=== PATIENT | male | born 1960 | race Caucasian/White ===

== ENCOUNTER 2017-11-01 13:33 | Inpatient (IN) | payer OTHER, MEDICARE ==
[2017-11-01 14:12] LABS: #Eosinphils 0.1 thou/uL (0.0-0.7); #Lymphocytes 1.1 thou/uL (1.20-3.40); #Monocytes 0.5 thou/uL (0.11-0.59); #Neutrophils 6.8 thou/uL (1.40-6.50); %Basophils 0.3 % (0.0-1.0); %Eosinophils 1.5 % (0.0-10.0); %Lymphocytes 12.4 % (21.0-51.0); %Monocytes 6.3 % (0.0-10.0); %Neutrophils 79.5 % (42.0-75.0); Hemoglobin 13.5 g/dL (14.0-18.0); Mean Corpuscular HGB CONC 30.2 g/dL (32.0-36.0); Mean Corpuscular Hemoglobin 28.5 pg (27.0-31.0); Mean Corpuscular Volume 94.1 fl (80.0-94.0); Platelet Count 210 thou/uL (130-400); RBC Distribution Width 15.4 % (11.5-14.5); Red Blood Cell (RBC) Count 4.73 mill/uL (4.70-6.10); White Blood Cell (WBC) Count 8.5 thou/uL (4.8-10.8)
[2017-11-01 14:40] LABS: ALT (SGPT) 12 U/L (8-55); AST (SGOT) 18 U/L (5-34); Albumin 4.2 g/dL (3.5-5.0); Alkaline Phosphatase 70 U/L (40-150); Anion Gap 17 mmol/L (10-20); BUN (Urea Nitrogen) 42 mg/dL (8.4-25.7); Bilirubin, Total 0.8 mg/dL (0.2-1.2); Calc. Creatinine Clearance 0 mL/min (70-130); Calcium 9.5 mg/dL (7.8-10.44); Carbon Dioxide 26 mmol/L (22-29); Chloride 97 mmol/L (98-107); Estimated GFR-MDRD 39; Globulin 3.6 g/dL (2.4-3.5); Glucose 258 mg/dL (70-105); Potassium 5.2 mmol/L (3.5-5.1); Protein, Total 7.8 g/dL (6.0-8.3); Sodium 135 mmol/L (136-145)
[2017-11-01 14:51] LABS: CKMB 1.9 ng/mL (0-6.6); Troponin I Less than 0.010 ng/mL (< 0.028)
--- NOTE | 2017-11-01 15:08 | RAD ---
PORTABLE AP CHEST RADIOGRAPH: Date: 11-01-17 History: Dyspnea, getting worse over the last month. Comparison: 05-03-13 FINDINGS: Cardiac silhouette is enlarged. Pulmonary vasculature is at the upper limits of normal with mild incr ease in perihilar interstitial densities, particularly on the right. There is a questionable nodular density overlying the right midlung zone, but this does overlie the anterior right third rib. Metalli c foreign body again overlies the medial aspect right lung apex. No pleural effusion or pneumothorax is seen. No other interval change. IMPRESSION: 1. Cardiomegaly with mild prominence of the pulmonary vasculature. Correlation for mild CHF is sugges дмитрий. 2. Question nodular density overlying the right mid lung zone. This does overlie the anterior right t hird rib and could be artifactual. Nevertheless, follow up PA and lateral chest radiograph is recomme nded. Code T POS: RAMIRO
[2017-11-01] MEDS ORDERED: Furosemide 40 MG/4 ML VIAL ONE (15:27)
[2017-11-01] MEDS ORDERED: Dextrose 5% in Water 1,000 ML IV PRN (16:17)
[2017-11-01] MEDS ORDERED: HumaLOG 300 UNITS/3 ML VIAL SC PRN (16:17)
[2017-11-01] MEDS ORDERED: Dextrose 50% Abboject 50 ML SYRINGE SLOW IVP PRN (16:17)
[2017-11-01] MEDS ORDERED: Albuterol Sulfate 2.5 mg/3 ml Neb NEB PRN (16:50)
[2017-11-01] MEDS ORDERED: Acetaminophen 325 MG TAB PO PRN (16:56)
[2017-11-01] MEDS ORDERED: Milk Of Magnesia 30 ML UDCUP PO PRN (16:56)
--- NOTE | 2017-11-01 19:35 | HP ---
PRIMARY CARE PHYSICIAN: Faizan Nugent M.D. PRESENTING COMPLAINT: "Swelling in my legs and shortness of breath." HISTORY OF PRESENT ILLNESS: Mr. Salas Najera is a 57-year-old male with a past medical history of type 2 diabetes mellitus, hypertension, and obesity, who presents to the emergency room with complaints of progressively worsening lower extremity edema for the past months, associated with dyspnea on exertion. He denies chest pain, PND, orthopnea, palpitations. He has no nausea, vomiting, cough, chest pain, or sputum production. There are no abdominal or urinary symptoms. He was seen by his engine manager and started on 20 mg of IV Lasix but due to continued worsening edema, this was increased to 60 mg on Tuesday. As he was not seeing any improvement, he came to the emergency room, where he was found to be saturating at 83% on room air. His troponin was negative. BNP was 199. BUN and creatinine elevated at 42 and 1.8. Potassium 5.2. Chest x-ray showed vascular congestion. EKG showed no signs of acute ischemia. He was given one dose of 40 mg furosemide and admitted for possible new onset CHF. He reports he had an echo done about 4 years ago which was normal and a cardiac catheterization about 5 years ago which also was normal. PAST MEDICAL HISTORY: Diabetes mellitus, hypertension, hyperlipidemia. PAST SURGICAL HISTORY: Appendectomy, carpal tunnel syndrome correction, right ulna surgery, cholecystectomy, and 12/multiple back surgeries. FAMILY HISTORY: Reviewed and noncontributory. SOCIAL HISTORY: Former smoker, smoked last over a decade ago. Does not drink alcohol or use illicit drugs. ALLERGIES: MSG and PENICILLIN. HOME MEDICATIONS: Atenolol 100 mg b.i.d., glyburide 5 mg b.i.d., morphine sulfate extended release 1-2 tablets p.r.n., nifedipine 30 mg daily, Proventil HFA inhaler. REVIEW OF SYSTEMS: Twelve-point review of systems conducted and negative except as stated in HPI. PHYSICAL EXAMINATION: VITAL SIGNS: Within normal limits, saturating well on nasal cannula oxygen. GENERAL: Not in acute distress, sitting comfortably in bed. HEENT: Normocephalic, atraumatic. Not pale, anicteric. PERRLA. EOMI. NECK: Supple, full range of movement. No JVD. RESPIRATORY: Vesicular breath sounds bilaterally with bibasilar crackles, mild. No wheezes or rales. CARDIOVASCULAR: S1, S2 only with no gallop rhythm. Regular rate and rhythm. Bilateral pedal edema 2-3+. MUSCULOSKELETAL: Moves all extremities spontaneously. SKIN: Warm, dry, well perfused. NEUROLOGIC: Alert and well oriented. No focal deficits. PSYCHIATRIC: Normal mood and affect. LABORATORY DATA: As stated in HPI. IMAGING: An EKG as stated in HPI. ASSESSMENT AND PLAN: 1. Acute hypoxic respiratory failure: likely due to new onset congestive heart failure. He has been given one dose of IV furosemide. We will obtain an echocardiogram, trend troponin, consult Cardiology, monitor inputs and outputs, and weigh daily. We will also continue on IV furosemide 40 mg b.i.d. The patient reports gaining up to 40 pounds in the last month. We will obtain TSH as well. 2. Type 2 diabetes mellitus: He is uncontrolled. We will place on sliding scale insulin, diabetic diet, fingerstick glucose before meals and at bedtime and hypoglycemia protocol. 3. Hypertension. Blood pressure is currently at goal. We will resume home medication, but his beta jyoti will need to be switched to one that improves mortality like carvedilol or Toprol-XL before discharge. He might also need to be started on an MIGUELITO inhibitor and spironolactone depending on echocardiogram result. 4. Hyperlipidemia. We will continue home medication. 5. Code status: FULL CODE. 6. Deep venous thrombosis prophylaxis, subcutaneous heparin. 7. Acute kidney injury on chronic kidney disease: Creatinine has ranged between 1.33 and 1.8 in the past year. His current acute kidney injury is likely due to cardiorenal syndrome. We will continue IV furosemide and monitor renal function closely. We will also avoid nephrotoxins and renally dose all his medications. [facility]
[2017-11-01] MEDS ORDERED: Furosemide 40 MG/4 ML VIAL SLOW IVP SCH (20:00)
[2017-11-01 20:13] LABS: Troponin I Less than 0.010 ng/mL (< 0.028)
[2017-11-01] MEDS: Heparin 5,000 UNITS/ML VIAL SC SCH ×2 (21:03)
[2017-11-01] MEDS: Docusate 100 MG CAP PO SCH (21:04)
[2017-11-02] MEDS ORDERED: oxyCODONE/Acetaminophen 5 mg/325 mg Tablet PO SCH ×2 (00:30→09:00)
[2017-11-02] MEDS: Gabapentin 400 MG CAP PO SCH ×4 (00:46→20:25)
[2017-11-02 02:08] LABS: #Eosinphils 0.2 thou/uL (0.0-0.7); #Lymphocytes 1.4 thou/uL (1.20-3.40); #Monocytes 0.6 thou/uL (0.11-0.59); #Neutrophils 3.9 thou/uL (1.40-6.50); %Basophils 0.7 % (0.0-1.0); %Eosinophils 2.9 % (0.0-10.0); %Lymphocytes 23.5 % (21.0-51.0); %Monocytes 9.1 % (0.0-10.0); %Neutrophils 63.8 % (42.0-75.0); Hemoglobin 12.4 g/dL (14.0-18.0); Mean Corpuscular HGB CONC 30.6 g/dL (32.0-36.0); Mean Corpuscular Hemoglobin 28.5 pg (27.0-31.0); Mean Corpuscular Volume 93.1 fl (80.0-94.0); Mean Platelet Volume 8.2 fL (7.4-10.4); Platelet Count 198 thou/uL (130-400); RBC Distribution Width 15.6 % (11.5-14.5); Red Blood Cell (RBC) Count 4.36 mill/uL (4.70-6.10); White Blood Cell (WBC) Count 6.1 thou/uL (4.8-10.8)
[2017-11-02 02:32] LABS: Troponin I 0.011 ng/mL (< 0.028)
[2017-11-02 02:37] LABS: Anion Gap 11 mmol/L (10-20); BUN (Urea Nitrogen) 40 mg/dL (8.4-25.7); Calc. Creatinine Clearance 131 mL/min (70-130); Calcium 9.5 mg/dL (7.8-10.44); Carbon Dioxide 31 mmol/L (22-29); Chloride 98 mmol/L (98-107); Estimated GFR-MDRD 51; Glucose 101 mg/dL (70-105); Potassium 4.1 mmol/L (3.5-5.1); Sodium 136 mmol/L (136-145)
[2017-11-02] MEDS: Furosemide 20 MG/2 ML VIAL SLOW IVP SCH ×2 (06:08→15:01)
[2017-11-02] MEDS ORDERED: Morphine ER 30 MG TAB PO SCH (09:00)
[2017-11-02] MEDS: Heparin 5,000 UNITS/ML VIAL SC SCH ×6 (09:19→20:26)
[2017-11-02] MEDS: Multivitamin W/ Minerals 1 TAB PO SCH (09:20)
[2017-11-02] MEDS: Docusate 100 MG CAP PO SCH ×2 (09:21→20:23)
[2017-11-02] MEDS: oxyCODONE/Acetaminophen 5 mg/325 mg Tablet PO SCH ×2 (09:49→20:25)
--- NOTE | 2017-11-02 14:58 | PDOC.PN ---
- Subjective Encounter Start Date: 11/02/17 Encounter Start Time: 15:02 Subjective: No complaints. Reports feeling much better. -: No acute events overnight. - Objective Resuscitation Status: Resuscitation Status FULL:Full Resuscitation MAR Reviewed: Yes Vital Signs & Weight: Vital Signs (12 hours) Temp Pulse Resp BP BP Pulse Ox 11/02/17 11:49 98.1 F 75 18 160/71 H 92 L 11/02/17 07:40 98.4 F 70 16 139/61 92 L 11/02/17 04:00 97.9 F 68 16 136/62 93 L Weight Weight 357 lb 9.6 oz I&O: 11/01/17 11/02/17 11/03/17 06:59 06:59 06:59 Intake Total 360 Output Total 3405 Balance -3045 Result Diagrams: 11/02/17 01:53 11/02/17 01:53 Additional Labs: Accuchecks 11/02/17 11/02/17 11/01/17 11:16 05:49 20:38 POC Glucose 175 H 94 173 H Phys Exam - Physical Examination Constitutional: NAD HEENT: PERRLA, moist MMs, sclera anicteric, oral pharynx no lesions Neck: no JVD, supple, full ROM Respiratory: no wheezing, no rales, no rhonchi, clear to auscultation bilateral minimal bibasilar crackles. Cardiovascular: RRR, no significant murmur, no rub Gastrointestinal: soft, non-tender, no distention, positive bowel sounds Musculoskeletal: pulses present, edema present Neurological: non-focal, moves all 4 limbs Psychiatric: normal affect, A&O x 3 Skin: normal turgor Deviation from normal: b/l chronic venous stasis b/l lower extremities Dx/Plan (1) Acute respiratory failure with hypoxia Code(s): J96.01 - ACUTE RESPIRATORY FAILURE WITH HYPOXIA Status: Acute Comment: Likely 2/2/ volume overload. ? new onset CHF. (2) HTN (hypertension) Code(s): I10 - ESSENTIAL (PRIMARY) HYPERTENSION Status: Chronic Qualifiers: Hypertension type: essential hypertension Qualified Code(s): I10 - Essential (primary) hypertension Comment: Achieving better control. We will gradually reintroduce home regimen. (3) DM2 (diabetes mellitus, type 2) Status: Chronic Qualifiers: Diabetes mellitus local company intermodal truck driver insulin use: with local company intermodal truck driver use Diabetes mellitus complication status: with kidney complications Diabetes mellitus complication detail: with chronic kidney disease Chronic kidney disease stage : stage 3 (moderate) Qualified Code(s): E11.22 - Type 2 diabetes mellitus with diabetic chronic kidney disease; N18.3 - Chronic kidney disease, stage 3 ( moderate); N18.3 - Chronic kidney disease, stage 3 (moderate); Z79.4 - local company intermodal truck driver (current) use of insulin; Z79.4 - prison (current) use of insulin; Z79.4 - prison (current) use of insulin; Z79.4 - local company intermodal truck driver (current) use of insulin Comment: Controlled and at goal. (4) HLD (hyperlipidemia) Code(s): E78.5 - HYPERLIPIDEMIA, UNSPECIFIED Status: Chronic (5) Acute on chronic renal failure Code(s): N17.9 - ACUTE KIDNEY FAILURE, UNSPECIFIED; N18.9 - CHRONIC KIDNEY DISEASE, UNSPECIFIED Status: Acute Qualifiers: Acute renal failure type: unspecified Chronic kidney disease stage: stage 3 (moderate) Qualified Code(s): N17.9 - Acute kidney failure, unspecified; N18.3 - Chronic kidney disease, stage 3 (moderate); N18.3 - Chronic kidney disease, stage 3 (moderate) Comment: Improving - Plan cont current plan of care, plan discussed w/ family, out of bed/ambulate, DVT proph w/heparin Continue IV diuresis -: f/u TTE report -: f/u Cardiology recs. -: Fasting lipid profile. * . Review of Systems - Medications/Allergies Allergies/Adverse Reactions: Allergies Allergy/AdvReac Type Severity Reaction Status Date / Time Penicillins Allergy Verified 05/01/13 09:08 Medications: Current Medications Acetaminophen (Tylenol) 650 mg PO Q4H PRN PRN Reason: Headache/Fever or Pain Albuterol Sulfate (Ventolin) 2.5 mg NEB [id number] PRN PRN Reason: Wheezing Aspirin (Aspirin Chewable) 81 mg PO DAILY [facility] Last Admin: 11/02/17 09:15 Dose: Not Given Aspirin (Aspirin Chewable) 81 mg PO DAILY [facility] Last Admin: 11/02/17 09:20 Dose: 81 mg Dextrose/Water (Dextrose 50%) 25 gm SLOW IVP PRN PRN PRN Reason: Hypoglycemia Docusate Sodium (Colace) 100 mg PO BID [facility] Last Admin: 11/02/17 09:21 Dose: Not Given Furosemide (Lasix) 20 mg SLOW IVP 0600,1400 [facility] Last Admin: 11/02/17 06:08 Dose: 20 mg Gabapentin (Neurontin) 800 mg PO Q8HR [facility] Glipizide (Glucotrol Xl) 10 mg PO BID [facility] Last Admin: 11/02/17 09:20 Dose: 10 mg Glucagon (Glucagon) 1 mg IM PRN PRN PRN Reason: Hypoglycemia Heparin Sodium (Porcine) (Heparin) 5,000 units SC TID [facility] Last Admin: 11/02/17 09:19 Dose: 5,000 units Dextrose/Water (D5w) 1,000 mls @ 0 mls/hr IV .Q0M PRN; As Directed PRN Reason: Hypoglycemia Insulin Human Lispro (Humalog) 0 units SC .MILD SLIDING SCALE PRN PRN Reason: Mild Correctional Scale Iron/Minerals/Multivitamins (Theragran M) 1 tab PO DAILY [facility] Last Admin: 11/02/17 09:20 Dose: 1 tab Lactulose (Lactulose) 20 gm PO DAILYPRN PRN PRN Reason: Constipation Magnesium Hydroxide (Milk Of Magnesium) 30 ml PO DAILYPRN PRN PRN Reason: Constipation Morphine Sulfate (Ms Contin) 60 mg PO Q12HR [facility] Last Admin: 11/02/17 09:50 Dose: 60 mg Morphine Sulfate (Ms Contin) 30 mg PO DAILY [facility] Oxycodone/Acetaminophen (Percocet 5/325) 1 tab PO BID [facility] Last Admin: 11/02/17 09:49 Dose: 1 tab
[2017-11-02] MEDS ORDERED: Nebivolol HCl 5 MG TAB PO SCH (18:45)
--- NOTE | 2017-11-03 00:09 | CON ---
DATE OF CONSULTATION: 11/02/2017 HISTORY OF PRESENT ILLNESS: Salas Najera is a 57-year-old white male, admitted with increased shortness of breath and peripheral edema. He has had cardiac evaluations in the past. In 10/2004, he continued to have persistent nausea after cholecystectomy and ultimately underwent cardiac catheterization, which revealed normal coronary arteries and normal left ventricular function. This was performed by Dr. Dominique. Then, he was evaluated by Dr. Griffiths in 2010 for rapid heartbeat. He was found to have supraventricular tachycardia and ultimately underwent ablation in 03/[address] Tracey. This apparently was performed in [place]. He follows with a mixing place supervisor in [place], but does not have any specific cardiac diagnosis and just sees him for preventative care. It is of note that in 04/2013, he was admitted and found to have pH of 7.26, pCO2 of 54, pO2 of 80 and felt at that time that he may have obesity hypoventilation syndrome. It was recommended that he undergo sleep study by Dr. Hernandez; however, this was not performed until 01/2017. He was found to have very severe obstructive sleep apnea. He does state that he snores at night at times states he quits breathing and he is hypersomnolent during the day. He still has not started using BiPAP and states that he just recently got the machine, but has never tried it. Over the last 1-2 weeks, he has had increasing peripheral edema. Dr. Nugent started him on Lasix 20 q.a.m. This did not make any difference and this was increased to 40 mg q.a.m., 20 mg q.p.m. He still has not had any resolution of his lower extremity edema and came to the emergency room for evaluation. He denies any chest discomfort. PAST MEDICAL HISTORY: Hypertension, hyperlipidemia, diabetes. OPERATIONS: Appendectomy, cholecystectomy, carpal tunnel release, right ulnar surgery, multiple back surgeries. MEDICATIONS: Morphine sulfate 30 q. 3 p.m., nifedipine 90 daily, furosemide 40 q.a.m. and 20 q.p.m., gabapentin 800 t.i.d., glipizide 10 mg b.i.d., insulin, morphine sulfate 60 mg q.12 hours, multivitamin daily, Bystolic 10 mg daily, oxycodone. ALLERGIES: PENICILLIN. Also sounds, if he had renal failure with trimethoprim and sulfamethoxazole. SOCIAL HISTORY: He stopped smoking over 10 years ago. He does not drink alcohol. FAMILY HISTORY: Unremarkable. REVIEW OF SYSTEMS: Twelve-point review of systems is unremarkable except as noted above. PHYSICAL EXAMINATION: VITAL SIGNS: Blood pressure 160/71, pulse of 75. HEENT: PERRL. NECK: Supple. LUNGS: Chest is clear. CARDIAC: S1, S2 normal without any S3, S4, or murmurs. ABDOMEN: Normal bowel sounds, without tenderness or organomegaly. EXTREMITIES: Revealed taut 2-3+ edema to the mid-thigh with chronic stasis changes of the lower extremities. NEUROLOGIC: Grossly intact. SKIN: Warm and dry. IMAGING AND LABORATORY DATA: EKG reveals normal sinus rhythm with left anterior fascicular block, poor R-wave progression. Cardiac enzymes were unremarkable. Hemoglobin 12.4, hematocrit 40.6, white count 6100, platelets 198 ,000. Sodium 136, potassium 4.1, chloride 98, carbon dioxide 31, BUN 40, creatinine 1.43. TSH is normal. Echocardiogram revealed the study to be technically difficult. Ejection fraction was 50% to 55% with mild left atrial enlargement, mild mitral regurgitation, mild tricuspid regurgitation, and mild pulmonic regurgitation. IMPRESSION: 1. Obesity hypoventilation syndrome. On blood gases 5 years ago, he had CO2 retention. 2. Untreated obstructive sleep apnea. The sleep study was 9 months ago and apparently he has just gotten a CPAP machine, but has not started using it. 3. Normal coronary arteries on catheterization in 2004. 4. History of supraventricular tachycardia ablation in 03/2011. 5. Hypertension. 6. Hypercholesterolemia. 7. Diabetes. 8. Former smoker. 9. Morbid obesity. 10. Chronic kidney disease. RECOMMENDATIONS: Arterial blood gases will be performed and I feel that he definitely has obesity hypoventilation syndrome. He needs pulmonary evaluation. It is of note that when he presented to the emergency room, his room air O2 sat was 83%. He should be started on his BiPAP. He will continue to be diuresed with low-dose intravenous Lasix. I will discontinue the Procardia, which is contributing also to his peripheral edema. I would control his blood pressure with Bystolic and he may need Apresoline as well. With his renal insufficiency, for now, would avoid MIGUELITO or ARBs. MTDD
[2017-11-03 05:13] LABS: #Eosinphils 0.2 thou/uL (0.0-0.7); #Lymphocytes 1.8 thou/uL (1.20-3.40); #Monocytes 0.6 thou/uL (0.11-0.59); #Neutrophils 3.7 thou/uL (1.40-6.50); %Basophils 0.7 % (0.0-1.0); %Eosinophils 3.2 % (0.0-10.0); %Lymphocytes 28.5 % (21.0-51.0); %Monocytes 9.6 % (0.0-10.0); %Neutrophils 58.1 % (42.0-75.0); Hemoglobin 12.4 g/dL (14.0-18.0); Mean Corpuscular HGB CONC 30.8 g/dL (32.0-36.0); Mean Corpuscular Hemoglobin 28.3 pg (27.0-31.0); Mean Corpuscular Volume 91.8 fl (80.0-94.0); Mean Platelet Volume 7.8 fL (7.4-10.4); Platelet Count 205 thou/uL (130-400); RBC Distribution Width 15.5 % (11.5-14.5); Red Blood Cell (RBC) Count 4.38 mill/uL (4.70-6.10); White Blood Cell (WBC) Count 6.4 thou/uL (4.8-10.8)
[2017-11-03 05:24] LABS: Anion Gap 11 mmol/L (10-20); BUN (Urea Nitrogen) 35 mg/dL (8.4-25.7); Calc. Creatinine Clearance 113 mL/min (70-130); Carbon Dioxide 31 mmol/L (22-29); Cardiac Risk 4.9 (Less than 4.5); Chloride 101 mmol/L (98-107); Cholesterol 107 mg/dl (< 200 Desired); Estimated GFR-MDRD 44; Glucose 110 mg/dL (70-105); HDL Cholesterol 22 mg/dL (>60 Neg Risk); LDL Cholesterol, Calculated 57 mg/dL; Sodium 139 mmol/L (136-145); Triglycerides 142 mg/dL (Less than 150)
[2017-11-03] MEDS: Gabapentin 400 MG CAP PO SCH ×3 (05:33→20:46)
[2017-11-03] MEDS: Furosemide 20 MG/2 ML VIAL SLOW IVP SCH ×2 (05:33→15:04)
[2017-11-03] MEDS ORDERED: Clopidogrel Bisulfate 75 MG TAB ONE (05:41)
--- NOTE | 2017-11-03 07:49 | PQF ---
CLINICAL DOCUMENTATION IMPROVEMENT CLARIFICATION FORM: ICD-10 Updated PLEASE DO AN ADDENDUM TO THE PROGRESS NOTE WITH ANY DOCUMENTATION UPDATES OR ADDITIONS AND CARRY THROUGH TO DC SUMMARY. THANK YOU. DATE: 11/03 ATTN: DR. CARLITO SARABIA Please exercise your independent, professional judgment in responding to the clarification form. Clinical indicators are provided on the bottom of this form for your review Please check appropriate box(s): HEART FAILURE: A. TYPE: [ ] Systolic / HFrEF [ ] Diastolic / HFpEF [ ] Combined Systolic / Diastolic B. ACUITY [ ] Acute [ ] Acute on Chronic [ ] Chronic [x ] Other diagnosis __OSA, no evidence for chf [ ] Unable to determine For continuity of documentation, please document condition throughout progress notes and discharge summary. Thank You. CLINICAL INDICATORS - SIGNS / SYMPTOMS / LABS ER PHYSICIAN DOCUMENTATION 11/01: 2+ BLE EDEMA; ACUTE CHF EXACERBATION PHYSICIAN H&P DOCUMENTATION 11/01: HX PRESENT ILLNESS: ...PROGRESSIVELY WORSENING LOWER EXTREMITY EDEMA FOR THE PAST MONTHS, ASSOCIATED WITH DYSPNEA ON EXERTION. ...CXR SHOWED VASCULAR CONGESTION. ASSESSMENT & PLAN: 1) ACUTE HYPOXIC RESPIRATORY FAILURE: LIKELY D/T NEW ONSET CHF ATTENDING PN 11/02: DX/PLAN: 1) ACUTE RESPIRATORY FAILURE W/HYPOXIA. LIKELY 2 /2 VOLUME OVERLOAD. ? NEW ONSET CHF. CONTINUE IV DIURESIS ECHO: EF 50-55%, L ATRIUM MILDLY DILATED BNP: 199 (11/01) RISKS: MORBID OBESITY CKD STAGE 3 HTN DM II TREATMENTS: IV LASIX (11/01 - PRESENT) CARDIOLOGY CONSULT ECHO THANK YOU! Martha (This form is maintained as a part of the permanent medical record) 2014 [employer]. All Rights Reserved Martha Mathis RN, BSN [email or web address] Office: [phone] [facility] CAMP[facility]erve
[2017-11-03 08:44] VITALS: BMI 42.8
[2017-11-03] MEDS: Nebivolol HCl 5 MG TAB PO SCH (10:22)
[2017-11-03] MEDS: Docusate 100 MG CAP PO SCH ×2 (10:22→20:37)
[2017-11-03] MEDS: Heparin 5,000 UNITS/ML VIAL SC SCH ×6 (10:44→20:38)
[2017-11-03] MEDS: oxyCODONE/Acetaminophen 5 mg/325 mg Tablet PO SCH ×2 (10:44→20:36)
[2017-11-03] MEDS: Multivitamin W/ Minerals 1 TAB PO SCH (10:44)
--- NOTE | 2017-11-03 10:46 | PDOC.PN ---
- Subjective Encounter Start Date: 11/03/17 Encounter Start Time: 10:45 Subjective: no sob - Objective Resuscitation Status: Resuscitation Status FULL:Full Resuscitation MAR Reviewed: Yes Vital Signs & Weight: Vital Signs (12 hours) Temp Pulse Resp BP BP Pulse Ox 11/03/17 08:12 98.2 F 65 16 159/68 H 96 11/03/17 03:59 97.7 F 71 13 117/51 L 96 11/03/17 00:00 97.8 F 71 18 129/57 L 97 Weight Admit Weight 357 lb 9.6 oz Weight 347 lb 8 oz I&O: 11/02/17 11/03/17 11/04/17 06:59 06:59 06:59 Intake Total 360 2520 Output Total 3405 6250 Balance -3014 -8262 Result Diagrams: 11/03/17 04:58 11/03/17 04:58 Additional Labs: Accuchecks 11/03/17 11/02/17 11/02/17 05:57 20:43 16:41 POC Glucose 95 99 108 11/02/17 11:16 POC Glucose 175 H Phys Exam - Physical Examination Neck: no JVD Respiratory: clear to auscultation bilateral Cardiovascular: RRR, no significant murmur Gastrointestinal: soft, non-tender, positive bowel sounds Musculoskeletal: edema present Dx/Plan (1) JARROD (obstructive sleep apnea) Code(s): G47.33 - OBSTRUCTIVE SLEEP APNEA (ADULT) (PEDIATRIC) Status: Acute (2) Acute on chronic renal failure Code(s): N17.9 - ACUTE KIDNEY FAILURE, UNSPECIFIED; N18.9 - CHRONIC KIDNEY DISEASE, UNSPECIFIED Status: Acute Qualifiers: Acute renal failure type: unspecified Chronic kidney disease stage: stage 3 (moderate) Qualified Code(s): N17.9 - Acute kidney failure, unspecified; N18.3 - Chronic kidney disease, stage 3 (moderate); N18.3 - Chronic kidney disease, stage 3 (moderate) Comment: Improving (3) Acute respiratory failure with hypoxia Code(s): J96.01 - ACUTE RESPIRATORY FAILURE WITH HYPOXIA Status: Resolved Comment: Likely 2/2/ volume overload. ? new onset CHF. (4) DM2 (diabetes mellitus, type 2) Status: Chronic Qualifiers: Diabetes mellitus fpc insulin use: with buttermaker use Diabetes mellitus complication status: with kidney complications Diabetes mellitus complication detail: with chronic kidney disease Chronic kidney disease stage : stage 3 (moderate) Qualified Code(s): E11.22 - Type 2 diabetes mellitus with diabetic chronic kidney disease; N18.3 - Chronic kidney disease, stage 3 ( moderate); N18.3 - Chronic kidney disease, stage 3 (moderate); Z79.4 - moth exterminator (current) use of insulin; Z79.4 - moth exterminator (current) use of insulin; Z79.4 - penitentiary (current) use of insulin; Z79.4 - penitentiary (current) use of insulin Comment: Controlled and at goal. (5) HLD (hyperlipidemia) Code(s): E78.5 - HYPERLIPIDEMIA, UNSPECIFIED Status: Chronic (6) HTN (hypertension) Code(s): I10 - ESSENTIAL (PRIMARY) HYPERTENSION Status: Chronic Qualifiers: Hypertension type: essential hypertension Qualified Code(s): I10 - Essential (primary) hypertension Comment: Achieving better control. We will gradually reintroduce home regimen. - Plan no evidence for chf -: edema aggravated by nifedipine -: adjusting BP meds -: cont accu/ss/etc * .
[2017-11-03] MEDS: Morphine ER 30 MG TAB PO SCH (15:04)
[2017-11-03 18:21] LABS: Actual Bicarbonate (HCO3a) 28.7 mEq/L (22-26); Base Excess (BEa) 3.7 mEq/L (0 (+/-) 2.5); CO2 Tension 44.8 mmHg (35.0-45.0); Hematocrit-ABG 46.9 % (42.0-52.0); Hemoglobin (Hb) 13.5 g/dL (14.0-18.0); O2 Tension (PaO2) 56.5 mmHg (80.0-100.0); pH, Arterial 7.43 (7.35-7.45)
[2017-11-03 18:23] LABS: Calcium, Ionized 1.1 mmol/L (1.12-1.30)
[2017-11-03 18:24] LABS: Puncture Site RR
[2017-11-03] MEDS: Insulin Detemir 100 UNITS/ML 60 UNITS in Pre-Filled Syringe 1 EACH SC SCH (20:39)
[2017-11-03] MEDS ORDERED: INSULIN GLARGINE HUM REC ANLOG 60 UNIT SC SCH ×2 (21:00)
[2017-11-04 05:22] LABS: #Eosinphils 0.2 thou/uL (0.0-0.7); #Lymphocytes 1.6 thou/uL (1.20-3.40); #Monocytes 0.5 thou/uL (0.11-0.59); #Neutrophils 3.6 thou/uL (1.40-6.50); %Basophils 0.4 % (0.0-1.0); %Eosinophils 2.6 % (0.0-10.0); %Lymphocytes 27.2 % (21.0-51.0); %Monocytes 8.9 % (0.0-10.0); %Neutrophils 60.9 % (42.0-75.0); Hemoglobin 12.6 g/dL (14.0-18.0); Mean Corpuscular Hemoglobin 29.1 pg (27.0-31.0); Mean Corpuscular Volume 90.8 fl (80.0-94.0); Mean Platelet Volume 7.9 fL (7.4-10.4); Platelet Count 204 thou/uL (130-400); RBC Distribution Width 15.3 % (11.5-14.5); Red Blood Cell (RBC) Count 4.32 mill/uL (4.70-6.10); White Blood Cell (WBC) Count 5.8 thou/uL (4.8-10.8)
[2017-11-04 05:38] LABS: Anion Gap 13 mmol/L (10-20); BUN (Urea Nitrogen) 33 mg/dL (8.4-25.7); Calc. Creatinine Clearance 122 mL/min (70-130); Calcium 8.9 mg/dL (7.8-10.44); Carbon Dioxide 28 mmol/L (22-29); Chloride 100 mmol/L (98-107); Estimated GFR-MDRD 49; Glucose 192 mg/dL (70-105); Potassium 4.1 mmol/L (3.5-5.1); Sodium 137 mmol/L (136-145)
[2017-11-04] MEDS: Furosemide 20 MG/2 ML VIAL SLOW IVP SCH ×2 (05:39→15:06)
[2017-11-04] MEDS: Gabapentin 400 MG CAP PO SCH ×3 (05:39→21:45)
[2017-11-04] MEDS ORDERED: Non-Formulary Item 1 EACH (Nebivolol Hcl [Bystolic] 10 MG) PO SCH ×2 (09:00)
[2017-11-04] MEDS ORDERED: NIFEDIPINE 90 MG PO SCH ×2 (09:00)
[2017-11-04] MEDS: Multivitamin W/ Minerals 1 TAB PO SCH (09:37)
[2017-11-04] MEDS: Docusate 100 MG CAP PO SCH ×2 (09:37→21:41)
[2017-11-04] MEDS: Nebivolol HCl 5 MG TAB PO SCH (09:37)
[2017-11-04] MEDS: oxyCODONE/Acetaminophen 5 mg/325 mg Tablet PO SCH ×2 (09:38→21:44)
[2017-11-04] MEDS: Heparin 5,000 UNITS/ML VIAL SC SCH ×6 (09:42→21:47)
--- NOTE | 2017-11-04 11:46 | PDOC.PN ---
- Subjective Encounter Start Date: 11/04/17 Encounter Start Time: 11:45 Subjective: no sob, etc - Objective Resuscitation Status: Resuscitation Status FULL:Full Resuscitation MAR Reviewed: Yes Vital Signs & Weight: Vital Signs (12 hours) Temp Pulse Resp BP BP Pulse Ox 11/04/17 08:00 97.7 F 68 18 11/04/17 07:39 97.7 F 68 18 130/68 90 L 11/04/17 04:00 98.2 F 51 L 18 128/70 93 L 11/04/17 00:00 97.9 F 74 18 114/42 L 93 L Weight Admit Weight 357 lb 9.6 oz Weight 345 lb 7.43 oz I&O: 11/03/17 11/04/17 11/05/17 06:59 06:59 06:59 Intake Total 2520 980 Output Total 4660 4250 Balance -1790 -4920 Result Diagrams: 11/04/17 04:45 11/04/17 04:45 Additional Labs: Accuchecks 11/04/17 11/03/17 11/03/17 04:52 20:10 16:44 POC Glucose 180 H 179 H 210 H 11/03/17 10:43 POC Glucose 190 H Phys Exam - Physical Examination Neck: no JVD Respiratory: clear to auscultation bilateral Cardiovascular: RRR, no significant murmur Gastrointestinal: soft, non-tender, positive bowel sounds Musculoskeletal: edema present Dx/Plan (1) JARROD (obstructive sleep apnea) Code(s): G47.33 - OBSTRUCTIVE SLEEP APNEA (ADULT) (PEDIATRIC) Status: Chronic (2) Acute on chronic renal failure Code(s): N17.9 - ACUTE KIDNEY FAILURE, UNSPECIFIED; N18.9 - CHRONIC KIDNEY DISEASE, UNSPECIFIED Status: Acute Qualifiers: Acute renal failure type: unspecified Chronic kidney disease stage: stage 3 (moderate) Qualified Code(s): N17.9 - Acute kidney failure, unspecified; N18.3 - Chronic kidney disease, stage 3 (moderate); N18.3 - Chronic kidney disease, stage 3 (moderate) Comment: Improving (3) Acute respiratory failure with hypoxia Code(s): J96.01 - ACUTE RESPIRATORY FAILURE WITH HYPOXIA Status: Resolved Comment: Likely 2/2/ volume overload. ? new onset CHF. (4) DM2 (diabetes mellitus, type 2) Status: Chronic Qualifiers: Diabetes mellitus intermediate insulin use: with lobsterman use Diabetes mellitus complication status: with kidney complications Diabetes mellitus complication detail: with chronic kidney disease Chronic kidney disease stage : stage 3 (moderate) Qualified Code(s): E11.22 - Type 2 diabetes mellitus with diabetic chronic kidney disease; N18.3 - Chronic kidney disease, stage 3 ( moderate); N18.3 - Chronic kidney disease, stage 3 (moderate); Z79.4 - group home (current) use of insulin; Z79.4 - ferry terminal agent (current) use of insulin; Z79.4 - group home (current) use of insulin; Z79.4 - ferry terminal agent (current) use of insulin Comment: Controlled and at goal. (5) HLD (hyperlipidemia) Code(s): E78.5 - HYPERLIPIDEMIA, UNSPECIFIED Status: Chronic (6) HTN (hypertension) Code(s): I10 - ESSENTIAL (PRIMARY) HYPERTENSION Status: Chronic Qualifiers: Hypertension type: essential hypertension Qualified Code(s): I10 - Essential (primary) hypertension Comment: Achieving better control. We will gradually reintroduce home regimen. - Plan O2 sat high 80s on RA -: renal fcn improved -: discuss with Dr Hernandez * .
--- NOTE | 2017-11-04 13:23 | CON ---
DATE OF CONSULTATION: 11/04/2017 CONSULTING PHYSICIAN: Dr. Hopkins. REASON FOR CONSULTATION: Sleep apnea. HISTORY OF PRESENT ILLNESS: The patient is a 57-year-old male who I have seen on one occasion in the past when he was in the hospital with fluid overload back in 2012. He presented to the hospital 3 d ays ago with swelling in his legs and shortness of breath. He attributes this to using Advair medica tion, which was prescribed by another doctor. This patient underwent a sleep study last January, which demonstrated severe obstructive sleep apnea jannette ding a CPAP pressure of 13. For whatever reason, he did not get the prescription for the equipment f illed by his primary doctor. He is now in possession of a unused CPAP machine that belonged to his m other that is now . He has improved during this hospitalization with diuresis. He says he is scheduled to go home tomorr ow. PAST MEDICAL HISTORY: 1. Diabetes mellitus. 2. Hypertension. 3. Hyperlipidemia. PAST SURGICAL HISTORY: 1. Appendectomy. 2. Carpal tunnel release. 3. Right ulnar surgery. 4. Cholecystectomy. 5. Twelve back surgeries. FAMILY MEDICAL HISTORY: Unremarkable. SOCIAL HISTORY: Former smoker, quit over 10 years ago. Does not consume alcohol, does not use illic it drugs. ALLERGIES: PENICILLIN. MEDICATIONS: Prior to admission, atenolol, glyburide, morphine, nifedipine and Proventil. REVIEW OF SYSTEMS: Twelve point review of systems otherwise negative. PHYSICAL EXAMINATION: VITAL SIGNS: Height 6 foot 3, weight 345 pounds, temperature 97.2, pulse 68, respirations 16, O2 sat 93% on room air, blood pressure 150/63. GENERAL: The patient is a morbidly obese male who is sitting up in a chair and is in no distress. HEENT: Pupils react. Sclerae anicteric. Oropharynx clear. NECK: Without adenopathy or JVD. LUNGS: Clear without wheezing or rhonchi. CARDIOVASCULAR: S1, S2 regular, without murmur. ABDOMEN: Soft, obese, nontender, nondistended. EXTREMITIES: A 2+ edema from knees downward. LABORATORY DATA AND IMAGING: White blood cell count 5.8, hematocrit 39.2, platelet count 204. PH 7. 43, pCO2 44, pO2 56. Sodium 137, potassium 4.7, chloride 100, CO2 28, BUN 33, creatinine 1.5, glucos e 192. Echo report demonstrated EF of 50%-55%. ASSESSMENT: 1. Obstructive sleep apnea - untreated. 2. Morbid obesity. 3. Chronic hypoxic respiratory failure, which I assume is probably from diastolic cardiac dysfunctio n and pulmonary edema. 4. Relatively normal CO2 on ABG, indicating that he probably does not have obesity hypoventilation s yndrome. RECOMMENDATIONS: I would be happy to look at the CPAP machine if he can bring it up here. I would a lso be happy to prescribe it if he decides he wants to get a new machine. He is on Medicare and he w ould have to follow Medicare compliance guidelines, which will require follow up in 2-3 months after he starts CPAP. Seventy minutes time was spent on this consultation at that time. Greater than 15 minutes was spent with the patient and/or on the patient's unit.
--- NOTE | 2017-11-04 14:01 | RAD ---
TWO VIEWS OF CHEST: DATE: 11/04/17. COMPARISON: 11/01/17. HISTORY: Evaluate chest, recent history of dyspnea and shortness of breath. FINDINGS: There is a subcentimeter metallic structure which projects over the soft tissues anterior to the [place] on of the thoracic inlet. Cardiac silhouette is prominent, a stable finding. There is multilevel mild degenerative change with in the imaged spine. There is no pneumothorax, pleural fluid, focal consolidation, or alveolar edema. IMPRESSION: No acute findings. POS: [facility]
[2017-11-04] MEDS: Morphine ER 30 MG TAB PO SCH (15:05)
[2017-11-04] MEDS: Insulin Detemir 100 UNITS/ML 60 UNITS in Pre-Filled Syringe 1 EACH SC SCH (21:42)
[2017-11-05 04:30] LABS: #Basophils 0.1 thou/uL (0.0-0.2); #Eosinphils 0.2 thou/uL (0.0-0.7); #Lymphocytes 1.6 thou/uL (1.20-3.40); #Monocytes 0.5 thou/uL (0.11-0.59); #Neutrophils 3.5 thou/uL (1.40-6.50); %Basophils 1.1 % (0.0-1.0); %Eosinophils 3.8 % (0.0-10.0); %Lymphocytes 26.9 % (21.0-51.0); %Monocytes 8.1 % (0.0-10.0); %Neutrophils 60.1 % (42.0-75.0); Hemoglobin 12.8 g/dL (14.0-18.0); Mean Corpuscular HGB CONC 31.5 g/dL (32.0-36.0); Mean Corpuscular Hemoglobin 28.9 pg (27.0-31.0); Mean Corpuscular Volume 91.8 fl (80.0-94.0); Mean Platelet Volume 8.2 fL (7.4-10.4); Platelet Count 212 thou/uL (130-400); RBC Distribution Width 15.2 % (11.5-14.5); Red Blood Cell (RBC) Count 4.42 mill/uL (4.70-6.10); White Blood Cell (WBC) Count 5.9 thou/uL (4.8-10.8)
[2017-11-05 04:37] LABS: Anion Gap 12 mmol/L (10-20); BUN (Urea Nitrogen) 34 mg/dL (8.4-25.7); Calc. Creatinine Clearance 132 mL/min (70-130); Calcium 9.4 mg/dL (7.8-10.44); Carbon Dioxide 29 mmol/L (22-29); Chloride 100 mmol/L (98-107); Estimated GFR-MDRD 54; Glucose 124 mg/dL (70-105); Potassium 3.9 mmol/L (3.5-5.1); Sodium 137 mmol/L (136-145)
[2017-11-05] MEDS: Furosemide 20 MG/2 ML VIAL SLOW IVP SCH (05:38)
[2017-11-05] MEDS: Gabapentin 400 MG CAP PO SCH (05:38)
[2017-11-05 07:46] VITALS: BP 135/74; TEMP 97.7
[2017-11-05] MEDS: Nebivolol HCl 5 MG TAB PO SCH (09:08)
[2017-11-05] MEDS: Docusate 100 MG CAP PO SCH (09:09)
[2017-11-05] MEDS: Heparin 5,000 UNITS/ML VIAL SC SCH ×2 (09:09)
[2017-11-05] MEDS: Multivitamin W/ Minerals 1 TAB PO SCH (09:09)
[2017-11-05] MEDS: oxyCODONE/Acetaminophen 5 mg/325 mg Tablet PO SCH (09:11)
--- NOTE | 2017-11-05 13:17 | DIS ---
DATE OF ADMISSION: 11/01/2017 DATE OF DISCHARGE: 11/05/2017 PRIMARY CARE PROVIDER: Faizan Nugent M.D. DISPOSITION: Discharged home. FINAL DIAGNOSES: Acute respiratory failure with hypoxia, hypertension, diabetes mellitus type 2, dys lipidemia, chronic kidney disease stage III, obstructive sleep apnea. DISCHARGE MEDICATIONS: Gabapentin 800 mg 3 times a day, morphine 30 mg p.o. daily, insulin Glargine 60 units at bedtime, morphine immediate release 60 mg p.o. q.12 hours, glipizide 10 mg p.o. b.i.d., L asix 40 mg daily, 10 mg daily, multivitamin 1 a day, aspirin 81 mg a day, oxycodone/acetaminoph en 0.5 tablets b.i.d. ALLERGIES: PENICILLIN. PENDING AT THE TIME OF DISCHARGE: Nothing. CODE STATUS: FULL. HOSPITAL COURSE: The patient admitted to the [facility] through [facility] for shortness of breath and swelling in the legs. Admitting chest x-ray, cardiomegaly wit h mild prominence of pulmonary vasculature, questionable nodular density in the right middle lung. [facility] chest x-ray on 11/04/2017, reveal no mass, no pulmonary vascular congestion. Initial laborat ory: Creatinine 1.8, BUN 42, sodium 135, potassium 5.2, chloride 97, blood sugar 173. Cardiac enzym es normal x3. BNP 200. CBC grossly normal except for a hemoglobin 13.5. Blood gas showed a pH of 7 .4, CO2 of 44.8, O2 of 56.5. The patient was placed in the hospital. IV diuresis started for his ly mphedema. He was seen in consultation by Dr. Dimitrios Hopkins, who considered it was obesity hypovent ilation syndrome in untreated obstructive sleep apnea, saw no evidence of CHF on admitting diagnosis. Echocardiogram revealed an EF of 50%-55%. The patient's nifedipine was stopped as it is known to c ause ankle swelling, which was one of his major complaints. The patient was also seen in consultatio n by Dr. Néstor Hernandez. The patient had unused unprogramed CPAP machine, which Dr. Hernandez programme d and ordered the appropriate supplies. The patient's chemistries and his follow up blood sugars wer e in the normal range 2-10, creatinine came down to 1.37, BUN to 34. Sodium and potassium normal. H e was placed on insulin detemir as opposed to his Lantus. At the time of discharge, his O2 sats were 92-93 on room air, blood pressure 135/74, respiratory rate 18. Chest is clear. He is being dischar ged home. FOLLOWUP: With his PCP, Dr. Nugent in [address] Hernandez is arranging followup with himself. No procedures were done. DIET: Heart healthy, diabetic, low salt.
== END 2017-11-05 11:29 | disposition home or self-care (01) | DRG 189 ==
LOC: ERS 13:33 → 2NO 16:04 → T4-A 11-03 19:40
PROVIDERS: ADMIT Internal Medicine; ATTEND Internal Medicine
DX: J96.01 Acute respiratory failure with hypoxia (principal); N17.9 Acute kidney failure, unspecified; E66.2 Morbid (severe) obesity with alveolar hypoventilation; Z68.41 Body mass index [BMI] 40.0-44.9, adult; E11.22 Type 2 diabetes mellitus with diabetic chronic kidney disease; E11.65 Type 2 diabetes mellitus with hyperglycemia; N18.3 Chronic kidney disease, stage 3 (moderate); I12.9 Hypertensive chronic kidney disease with stage 1 through stage 4 chronic kidney disease, or unspecified chronic kidney disease; E78.5 Hyperlipidemia, unspecified; Z87.891 Personal history of nicotine dependence; Z88.0 Allergy status to penicillin; Z79.82 Long term (current) use of aspirin; Z79.4 Long term (current) use of insulin; Z79.899 Other long term (current) drug therapy
CPT/HCPCS: 36415; 36416; 71045; 71046; 80048; 80053; 80061; 82553; 82805; 83880; 84443; 84484; 85025; 93005; 93306; 93798; 94760; 96374; A4216; J1644; J1815; J1940

== ENCOUNTER 2019-10-03 10:29 | Outpatient (CLI) | payer OTHER, MEDICARE ==
--- NOTE | 2019-10-03 12:12 | RAD ---
THORACIC SPINE 3 VIEWS: Date: 10/03/2019 HISTORY: Follow-up closed wedge compression fracture of 9th vertebral thoracic region. FINDINGS: Extensive multilevel disc osteophytosis. No convincing evidence for acute thoracic spine fracture fro m plain film evaluation. IMPRESSION: Extensive diffuse spondylosis. No convincing evidence for acute thoracic spine fracture visualized. POS: [facility]
== END 2019-10-03 10:30 | disposition home or self-care (01) ==
LOC: BICRAD 10:29
PROVIDERS: ATTEND Anesthesiology Pain Medicine
DX: S22.070A Wedge compression fracture of T9-T10 vertebra, initial encounter for closed fracture (principal); M47.814 Spondylosis without myelopathy or radiculopathy, thoracic region
CPT/HCPCS: 72070

== ENCOUNTER 2020-05-21 14:56 | Day surgery (SDC) | payer MEDICARE ==
[~2020-05-21 14:56] MED LIST: DAPTOMYCIN IVPB SCH; Ertapenem 1 GM in Sodium Chloride 0.9% 100 ML IVPB SCH; SODIUM CHLORIDE 0.9% IVPB SCH; Vancomycin HCl 1.25 GM in Sodium Chloride 0.9% 250 ML 250 ML IVPB SCH; cefTRIAXone\\ROCEPHIN 2 GM in Sodium Chloride 0.9% 100 ML IVPB SCH
[2020-05-21] MEDS ORDERED: Sodium Chloride 0.9% 20 ML ONE (15:33)
== END 2020-05-21 18:00 ==
LOC: ONC/OP 14:56
PROVIDERS: ATTEND Internal Medicine Infectious Disease
DX: M86.9 Osteomyelitis, unspecified (principal)
CPT/HCPCS: 96365; 96367; J0696; J0878; J1642; J3370; J3490; J7050

== ENCOUNTER 2020-05-22 13:48 | Day surgery (SDC) | payer MEDICARE ==
[~2020-05-22 13:48] MED LIST changes: -DAPTOMYCIN IVPB SCH; -Ertapenem 1 GM in Sodium Chloride 0.9% 100 ML IVPB SCH; -SODIUM CHLORIDE 0.9% IVPB SCH; +Sodium Chloride 0.9% 30 ML ONE
[2020-05-22 14:13] VITALS: BP 167/78; TEMP 97.9
[2020-05-22 15:35] LABS: #Eosinphils 0.2 thou/uL (0.0-0.7); #Monocytes 0.5 thou/uL (0.11-0.59); #Neutrophils 6.7 thou/uL (1.40-6.50); %Basophils 0.2 % (0.0-1.0); %Eosinophils 1.8 % (0.0-10.0); %Monocytes 5.7 % (0.0-10.0); %Neutrophils 71.3 % (42.0-75.0); Hemoglobin 11.8 g/dL (14.0-18.0); Mean Corpuscular HGB CONC 33.1 g/dL (32.0-36.0); Mean Corpuscular Hemoglobin 29.1 pg (27.0-31.0); Mean Platelet Volume 7.5 fL (7.4-10.4); Platelet Count 270 thou/uL (130-400); RBC Distribution Width 15.7 % (11.5-14.5); Red Blood Cell (RBC) Count 4.04 mill/uL (4.70-6.10); White Blood Cell (WBC) Count 9.3 thou/uL (4.8-10.8)
[2020-05-22 16:03] LABS: Anion Gap 14 mmol/L (10-20); BUN (Urea Nitrogen) 28 mg/dL (8.4-25.7); CRP (Inflammatory) 10.36 mg/dL (= or < 0.5); Calc. Creatinine Clearance 0 mL/min (70-130); Calcium 8.7 mg/dL (7.8-10.44); Carbon Dioxide 28 mmol/L (22-29); Chloride 92 mmol/L (98-107); Estimated GFR-MDRD 60; Glucose 236 mg/dL (70-105); Potassium 4.3 mmol/L (3.5-5.1); Sodium 130 mmol/L (136-145)
== END 2020-05-22 17:00 | disposition home or self-care (01) ==
LOC: ONC/OP 13:48
PROVIDERS: ATTEND Internal Medicine Infectious Disease
DX: M86.9 Osteomyelitis, unspecified (principal); Z88.0 Allergy status to penicillin
CPT/HCPCS: 80048; 85025; 86140; 96365; 96367; J0696; J1642; J3370; J3490; J7050